=== PATIENT | female | born 1940 | race African-American/Black ===

== ENCOUNTER 2019-09-03 16:14 | Inpatient (IN) ==
[2019-09-03] MEDS ORDERED: NS 1,000 ML IV ONE (16:27)
--- NOTE | 2019-09-03 16:35 | EKG Report ---
Test Performed on : 09/03/2019 4:25:46 PM Test Reason : syncope Blood Pressure : / mmHG Vent. Rate : 087 BPM Atrial Rate : 087 BPM P-R Int : 144 ms QRS Dur : 084 ms QT Int : 362 ms P-R-T Axes : 027 030 006 degrees QTc Int : 435 ms Normal sinus rhythm. Minimal voltage criteria for LVH, may be normal variant Nonspecific ST and T wave abnormality Abnormal ECG When compared with ECG of 10-AUG-2019 18:30, (Unconfirmed) Nonspecific T wave abnormality now evident in Inferior leads Unconfirmed Result
--- NOTE | 2019-09-03 16:37 | PROVIDER DOCUMENTATION ---
HPI-Syncope/Dizziness - General Stated Complaint: SYNCOPE Time Seen by Provider: 09/03/19 18:10 Source: patient Allergies/Adverse Reactions: Patient Allergies Allergy/AdvReac Type Severity Reaction Status Date / Time Thiazides Allergy Unknown NAUSEA/VOMI Verified 09/03/19 17:27 TING ciprofloxacin Allergy Unknown Verified 09/03/19 17:27 labetalol Allergy Unknown Verified 09/03/19 17:27 amlodipine AdvReac Severe NAUSEA/VOMI Verified 09/03/19 17:27 TING aspirin AdvReac Severe NAUSEA/VOMI Verified 09/03/19 17:27 TING carvedilol [From Coreg] AdvReac Severe SHORTNESS Verified 09/03/19 17:27 OF BREATH clonidine AdvReac Severe Unknown Verified 09/03/19 17:27 eprosartan mesylate * AdvReac Severe NAUSEA/VOMI Verified 09/03/19 17:27 [From Teveten HCT] TING fexofenadine HCl * AdvReac Severe DIZZINESS Verified 09/03/19 17:27 [From Suha] hydrochlorothiazide AdvReac Severe NAUSEA/VOMI Verified 09/03/19 17:27 [From Teveten HCT] TING ibuprofen [From Motrin] AdvReac Severe ANAPHYLAXIS Verified 09/03/19 17:27 olmesartan medoxomil * AdvReac Severe NAUSEA/VOMI Verified 04/07/19 15:59 [From Benicar] TING omeprazole AdvReac Severe NAUSEA/VOMI Verified 09/03/19 17:27 TING verapamil HCl * AdvReac Severe NAUSEA/VOMI Verified 04/07/19 15:59 [From Verelan] TING acetaminophen [From Tylenol] AdvReac Unknown Verified 09/03/19 17:27 amoxicillin AdvReac Unknown Verified 09/03/19 17:27 banana AdvReac ABDOMINAL Verified 09/03/19 17:27 PAIN diphenhydramine HCl * AdvReac Unknown Verified 09/03/19 17:27 [From Benadryl] fexofenadine AdvReac Unknown Verified 09/03/19 17:27 hydralazine AdvReac Unknown Verified 09/03/19 17:27 methyldopa AdvReac Unknown Verified 09/03/19 17:27 milk AdvReac ABDOMINAL Verified 09/03/19 17:27 PAIN peanut AdvReac ABDOMINAL Verified 09/03/19 17:27 PAIN spironolactone AdvReac DIZZINESS Verified 09/03/19 17:27 [From Aldactone] Home Medications: Home Medication List Medication Instructions Recorded Confirmed Last Taken Type Clonazepam [Klonopin] 0.5 mg PO QAM PRN 06/27/15 09/03/19 09/03/19 History Magnesium Oxide [Magnesium] 400 mg PO DAILY 03/29/17 09/03/19 09/03/19 History Candesartan Cilexetil [Atacand] 32 mg PO DAILY #30 tab 04/07/19 09/03/19 09/03/19 Rx Chlorthalidone [Hygroton] 25 mg PO DAILY #30 tab 04/07/19 09/03/19 09/03/19 Rx Metoprolol Succinate E.r. [Toprol 1.5 tab PO BID 09/03/19 09/03/19 09/03/19 History Xl] Montelukast [Singulair] 1 tab PO DAILY 09/03/19 09/03/19 09/03/19 History Pantoprazole Sodium [Protonix] 1 tab PO DAILY 09/03/19 09/03/19 09/03/19 History - History of Present Illness-Syncope/Dizzy Nature of Presenting Problem: Patient is an 79 yof who presents via EMS following multiple syncopal episodes that occurred today. States she passed out 4 times. Each time became lightheaded while standing and sat down and passed out while sitting. Hx of ovarian cancer, received last chemo tx on 08/28/19. C/o nausea and generalized weakness at this time. Denies any other complaints. States did not fall or strike head following any of the syncopal episodes. Pt non-toxic in appearance and neuro intact. Review of Systems - Adult - REVIEW OF SYSTEMS - ADULT Constitutional: reports: no symptoms reported Eyes: reports: no symptoms reported Ears, Nose, Mouth & Throat: reports: no symptoms reported Cardiovascular: reports: see HPI, syncope. denies: chest pain Respiratory: reports: no symptoms reported. denies: shortness of breath Gastrointestinal: reports: no symptoms reported Genitourinary: reports: no symptoms reported Musculoskeletal: reports: no symptoms reported Integumentary: reports: no symptoms reported Neurological: reports: see HPI, syncope Psychiatric: reports: no symptoms reported Endocrine: reports: no symptoms reported Hematologic/Lymphatic: reports: no symptoms reported Allergic/Immunologic: reports: no symptoms reported All Other Systems: Reviewed and Negative Past History - Adult - PAST MEDICAL HISTORY-ADULT Review of Records: reports: Nursing Assessment Review, Medications Reviewed, Social history reviewed & non-contributory. Major Childhood Illnesses: reports: denies history Cardiovascular: reports: HTN Respiratory: reports: denies history Gastrointestinal: reports: GERD Obstetrical/Gynecological: reports: uterine/ovarian cancer (ovarian) Genitourinary: reports: other (ovarian cancer) Musculoskeletal: reports: denies history Neurological: reports: denies history Psychiatric: reports: anxiety Endocrine/Immune: reports: denies history Other Conditions: reports: denies history Additional History: Ovarian cancer - PRIOR SURGERIES/PROCEDURES Surgical/Procedure History: reports: cholecystectomy, hysterectomy, BTL, indwelling device (port), other (cytocele, rectocele, gallstones) - PRIOR HOSPITALIZATIONS Prior Hospitalizations: reports: none - IMMUNIZATION STATUS Childhood Immunizations: See Nurse Assessment Flu Vaccine: See Nurse Assessment - FAMILY HISTORY Family History: reviewed, not pertinent - SOCIAL HISTORY Smoking: non-smoker Physical Exam-General - PHYSICAL EXAM-ADULT Initial Vital Signs Reviewed: Yes - CONSTITUTIONAL General Appearance: alert, no apparent distress. negative: lethargic, slow to respond - EYES Eyes: PERRL/EOMI - HEAD, EARS, NOSE, MOUTH & THROAT HENMT: normocephalic/atraumatic, moist mucous membranes - NECK Neck: non-tender, full range of motion, supple, normal inspection - RESPIRATORY Respiratory: chest non-tender, lungs clear, normal breath sounds, no pleuratic chest pain, no respiratory distress, no accessory muscle use - CARDIOVASCULAR Cardiovascular: normal peripheral pulses, regular rate, rhythm, no edema, no gallop, no murmur - GASTROINTESTINAL (ABDOMEN) Abdominal Exam: normal bowel sounds, non tender, soft - MUSCULOSKELETAL Back Exam: normal inspection, no vertebral tenderness Extremity: normal range of motion, non-tender, normal capillary refill - SKIN Integumentary: normal color, warm/dry, rash (bilateral lower extremities- erythemic, papular). negative: cyanosis, diaphoresis, jaundice, mottled, pallor - NEUROLOGIC Neurologic: grossly normal, no motor/sensory deficits - PSYCHIATRIC Psych/Mental Status: normal mood/affect, normal thought content, normal thought process, oriented x 3 Progress - PLAN OF CARE/RESULTS Progress/Plan/Lab Results: Vital Signs - 8 hr 09/03/19 17:09 09/03/19 18:33 Temperature 98.3 F Pulse Rate 81 Pulse Rate [Sitting] 77 Pulse Rate [Standing] 74 Pulse Rate [Supine] 72 Respiratory Rate 16 Blood Pressure 149/84 Blood Pressure [Sitting] 152/83 Blood Pressure [Standing] 135/65 Blood Pressure [Supine] 125/101 O2 Sat by Pulse Oximetry 97 Laboratory Results - last 24 hr 09/03/19 09/03/19 09/03/19 16:13 16:27 16:43 WBC 2.40 L RBC 2.86 L Hgb 9.4 L Hct 28.6 L MCV 100.0 H MCH 32.9 H MCHC 32.9 L RDW Std Deviation 14.9 H Plt Count 104 L MPV 10.0 Immature Gran % (Auto) 0.0 Neut % (Auto) 66.7 Lymph % (Auto) 26.7 [place] % (Auto) 5.0 Eos % (Auto) 0.8 Baso % (Auto) 0.8 Immature Gran # (Auto) 0.00 Neut # (Auto) 1.60 Lymph # (Auto) 0.64 L [place] # (Auto) 0.12 Eos # (Auto) 0.02 Baso # (Auto) 0.02 PT INR PTT (Actin FS) Sodium 134 L Potassium 3.5 Chloride 97 L Carbon Dioxide 26 Anion Gap 11 BUN 22 Creatinine 1.4 H Estimated GFR/1.73 m2 44 BUN/Creatinine Ratio 16 Glucose 119 H POC Glucose 106 H Calculated Osmolality 273 Calcium 9.2 Total Bilirubin 1.20 H AST 71 H ALT 53 H Alkaline Phosphatase 75 Troponin T High Sens Total Protein 6.6 Albumin 3.3 L Globulin 3.3 Albumin/Globulin Ratio 1.0 09/03/19 09/03/19 16:43 16:43 WBC RBC Hgb Hct MCV MCH MCHC RDW Std Deviation Plt Count MPV Immature Gran % (Auto) Neut % (Auto) Lymph % (Auto) [place] % (Auto) Eos % (Auto) Baso % (Auto) Immature Gran # (Auto) Neut # (Auto) Lymph # (Auto) [place] # (Auto) Eos # (Auto) Baso # (Auto) PT 13.5 INR 1.02 PTT (Actin FS) 33.9 Sodium Potassium Chloride Carbon Dioxide Anion Gap BUN Creatinine Estimated GFR/1.73 m2 BUN/Creatinine Ratio Glucose POC Glucose Calculated Osmolality Calcium Total Bilirubin AST ALT Alkaline Phosphatase Troponin T High Sens 10 Total Protein Albumin Globulin Albumin/Globulin Ratio Orders Category Date Time Status Cardiac Monitoring DIRECTED Care 09/03/19 16:27 Active ED: Orthostatic Vital Signs (ER use this DIRECTED Care 09/03/19 16:27 Active FSBS/Accucheck Result NOW Care 09/03/19 16:27 Active CHEST-2 VIEWS [RAD] Stat Exams 09/03/19 16:[address] HEAD W/O CONTRAST [CT] Stat Exams 09/03/19 17:17 Completed CBC WITH DIFF [HEME] Stat Lab 09/03/19 16:13 Completed COMPREHENSIVE METABOLIC PANEL [CHEM] Stat Lab 09/03/19 16:43 Completed PROTIME WITH INR [COAG] Stat Lab 09/03/19 16:43 Completed PTT [COAG] Stat Lab 09/03/19 16:43 Completed TROPONIN T HIGH SENSITIVITY Stat Lab 09/03/19 16:43 Completed UA NIMS W/REFLEX CULT [URINALYSIS] Stat Lab 09/03/19 18:21 Ordered 0.9% Sodium Chloride Inj [Ns] 1,000 ml Med 09/03/19 16:27 Active IV 100 mls/hr Metoclopramide [Reglan] Med 09/03/19 17:02 Discontinued 10 mg IV NOW ONE EKG [EKG] Stat Ther 09/03/19 16:27 Draft Result Diagrams: 09/03/19 16:13 09/03/19 16:43 - REASSESSMENT Reassessment #1 Time Reassessed: 19:00 Status: other (Admitting HPS paged. Pt in agreement with plan to admit. No change in mental status since initial exam.) Reassessment #2 Time Reassessed: 19:30 Status: other (Admitting HPS paged.) Reassessment #3 Time Reassessed: 20:00 Status: other (Admitting HPS paged.) - EKG 1 Time of EKG reading by physician:: 16:25 EKG Read and Signed by:: Pablo Greer EKG Interpretation (*Must complete 3 of following elements*): Abnormal Rate: 87 Rhythm: SR, nonspecific ST & T wave abnormality QRS: normal ST Wave: non-specific ST changes - XRAY 1 XRAY Study: Chest ([facility] - [address], [address], [place] [address] [place] [address] Department of Imaging Patient: MAURA LOMBARDO Date: 09/03/19MR#: [id number] : 1940DM Status: REG ERAcct#: [id number] Age/Sex: 79/FRoom/Bed: Loc: ED Ordering Physician: Jasbir Lorenz Family Physician: None,PCP Reason for Procedure: syncope Signed EXAM: CHEST-2 VIEWS 09/03/2019 HISTORY: syncope TECHNIQUE: PA and lateral chest COMMENT: There is COPD. Compared to 08/10/2019 there has been no significant change. IMPRESSION: Stable chest. Electronically signed by Bob Medrano 09/03/2019 5:31 PM 09/03/19 173 Interpreting Physician: Bob Medrano MD Dictated Date/Time: 09/03/19 1730 cc: Jasbir Lorenz; None,PCP) - CT/MRI 1 CT Study: Head ([facility] - [address], [address], [place] [address] [place] [id number] Department of Imaging Patient: MAURA LOMBARDO Date: 09/03/19MR#: [id number] : 1940DM Status: REG ERAcct#: [id number] Age/Sex: 79/FRoom/Bed: Loc: ED Ordering Physician: Jasbir Lorenz Family Physician: None,PCP Reason for Procedure: syncope Signed EXAM: CT HEAD W/O CONTRAST 09/03/2019 HISTORY: syncope TECHNIQUE: This exam was performed using automated exposure control, adjustment of mA or kV according to patient size, and/or use of iterative reconstruction technique. COMMENT: There is no evidence of mass effect, bleed, or abnormal extra-axial fluid collection. There are patchy lucencies in the periventricular white matter of both hemispheres. 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 The visualized paranasal sinuses are clear. Compared to the previous examination of 08/04/2015 there has been no significant change. IMPRESSION: Mild chronic microvascular white matter changes. No evide nce of acute intracranial disease. Electronically signed by Bob Medrano 09/03/2019 5:27 PM 09/03/19 1727 Interpreting Physician: Bob Medrano MD Dictated Date/Time: 09/03/19 172 cc: Jasbir Lorenz; None,PCP) - CONSULTS/PCP/HOSPITALIST Notification #1 *Consult/PCP/Hospitalist*: Dr. Arcos Time Discussed: 20:26 Reason/Comments: admit- syncope, pancytopenia Consult Disposition: Will see in ED, Admit Departure - Departure Date of Disposition Decision: 09/03/19 Time of Disposition Decision: 20:24 DIAGNOSIS: Pancytopenia, Renal insufficiency Syncope Qualifiers: Syncope type: unspecified Qualified Code(s): R55 - Syncope and collapse Disposition: ADMITTED INPATIENT Certified Medical Emergency: Emergent Condition: Stable Referrals and Follow-Ups: None,PCP [Primary Care Provider] - - Critical Care Note This patient required my direct & personal management of CC.: No Attestation - Physician/ FLORENCIA Attestation Patient care was provided by Advanced Practice Provider:: Yes Advanced Practice Provider:: Jasbir Lorenz Advanced Practice Provider documentation review:: The Mid-level provider documentation, treatment plan and medical decision making was reviewed by the physician who agrees with all treatment and medical decision making by the MLP. The physician spent face to face time with patient:: No Advanced Practice Provider documentation review:: Supervising physician onsite and consulted in the evaluation and care of this patient. The physician did not have a face to face encounter with the patient.
[2019-09-03] MEDS ORDERED: REGLAN IV ONE (17:02)
[2019-09-03 17:14] LABS: BASO# 0.02 X1000 (0.0-0.2); BASO% 0.8 % (0.0-0.8); EOS# 0.02 X1000 (0.0-0.7); EOS% 0.8 % (0.0-10.0); HEMATOCRIT 28.6 % (37.0-47.0); HEMOGLOBIN 9.4 g/dL (12.0-16.0); LYMPH# 0.64 X1000 (1.2-3.4); LYMPH% 26.7 % (20.5-51.1); MCH 32.9 PG (27-31); MCHC 32.9 g/dL (33-37); MONO# 0.12 X1000 (0.11-0.59); NEUT% 66.7 % (42.2-75.2); PLT 104 X1000 (130-400); RBC 2.86 XMIL (4.2-5.4); RDW 14.9 % (11.5-14.5)
--- NOTE | 2019-09-03 17:29 | Diag Imaging Result Doc PS360 ---
EXAM: CT HEAD W/O CONTRAST 09/03/2019 HISTORY: syncope TECHNIQUE: This exam was performed using automated exposure control, adjustment of mA or kV according to patient size, and/or use of iterative reconstruction technique. COMMENT: There is no evidence of mass effect, bleed, or abnormal extra-axial fluid collection. There are patchy lucencies in the periventricular white matter of both hemispheres. 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 The visualized paranasal sinuses are clear. Compared to the previous examination of 08/04/2015 there has been no significant change. IMPRESSION: Mild chronic microvascular white matter changes. No evidence of acute intracranial disease. Electronically signed by Bob Medrano 09/03/2019 5:27 PM
--- NOTE | 2019-09-03 17:33 | Diag Imaging Result Doc PS360 ---
EXAM: CHEST-2 VIEWS 09/03/2019 HISTORY: syncope TECHNIQUE: PA and lateral chest COMMENT: There is COPD. Compared to 08/10/2019 there has been no significant change. IMPRESSION: Stable chest. Electronically signed by Bob Medrano 09/03/2019 5:31 PM
[2019-09-03 17:57] LABS: INR 1.02; PROTIME 13.5 Seconds (11.0-16.0)
[2019-09-03 17:58] LABS: PTT 33.9 Seconds (22.3-41.8)
[2019-09-03 18:12] LABS: ALBUMIN 3.3 g/dL (3.5-5.0); CALCIUM 9.2 mg/dL (8.8-10.2); CREATININE 1.4 mg/dL (0.5-0.9); POTASSIUM 3.5 mmol/L (3.5-5.1); TOTAL BILIRUBIN 1.2 mg/dL (0.20-1.00); TOTAL PROTEIN 6.6 g/dL (6.3-8.3)
[2019-09-03 21:07] LABS: URINE SOURCE CLEAN CATCH
[2019-09-03 21:09] LABS: BILIRUBIN URINE NEGATIVE (NEGATIVE); BLOOD URINE NEGATIVE (NEGATIVE); COLOR YELLOW; GLUCOSE URINE NEGATIVE (NEGATIVE); KETONE URINE NEGATIVE (NEGATIVE); LEUKOCYTES URINE NEGATIVE (NEGATIVE); NITRITE URINE POSITIVE (NEGATIVE); PROTEIN URINE NEGATIVE (NEGATIVE); SP GRAVITY URINE 1.012; TURBIDITY URINE CLEAR (CLEAR); UROBILINOGEN URINE NORMAL (NORMAL)
[2019-09-03 21:13] LABS: UR EPITHELIAL CELLS <10 /HPF (<10); URINE BACTERIA NEGATIVE /HPF; URINE CASTS NONE SEEN; URINE CRYSTALS NONE SEEN; URINE RBC <10 /HPF (<10); URINE SMALL ROUND CELLS NONE SEEN; URINE WBC <10 /HPF (<10); URINE YEAST NONE SEEN
[2019-09-03] MEDS ORDERED: BENADRYL PO ONE (22:25)
[2019-09-03] MEDS: NS 1,000 ML IV SCH (22:51)
[2019-09-04] MEDS ORDERED: KLONOPIN PO PRN (06:44)
--- NOTE | 2019-09-04 07:09 | HISTORY AND PHYSICAL ---
CHIEF COMPLAINT: Recurrent episodes of loss of consciousness. HISTORY OF PRESENT ILLNESS: Ms. Jelena Oconnor is an 79-year-old female, and she does have a history of ovarian cancer currently receiving chemotherapy, hypertension, sinus disease, gastroesophageal reflux disease. The patient presents to the hospital because of recurrent episodes of loss of consciousness, which she experiences whenever she gets chemotherapy for ovarian cancer. The patient is currently on Alimta. The patient is unable to adequately describe these episodes of syncope. She currently has some dizziness no headaches, has visual blurring. When she presented to the ER, she did have a CT scan of the brain done, which was unremarkable for any acute changes. The patient has now been admitted to the floor now for further management. PAST MEDICAL HISTORY: Ovarian cancer, hypertension, sinus disease and gastroesophageal reflux disease. SOCIAL HISTORY: No history of cigarette smoking. No alcohol or drug use. ALLERGIES: No known drug allergies. FAMILY HISTORY: Positive for hypertension. PAST SURGICAL HISTORY: She has had bilateral oophorectomy. She has had bladder suspension surgery, cholecystectomy, as well as partial hysterectomy. ALLERGIES: She is allergic to thiazides, ciprofloxacin, labetalol, amlodipine, aspirin, carvedilol, clonidine, Eprosartan mesylate, fexofenadine, hydrochlorothiazide, ibuprofen, Benicar, omeprazole, verapamil, acetaminophen, Amoxil, Benadryl, fexofenadine, hydralazine methyldopa, milk, peanuts, spironolactone. FAMILY HISTORY: Positive for hypertension. MEDICATIONS: Include the following, Klonopin 0.5 mg p.o. once a day, magnesium oxide 400 mg p.o. daily, Atacand 32 mg p.o. once a day, chlorthalidone 25 mg p.o. once a day, metoprolol 1.5 tab twice a day. Montelukast 1 tab daily, pantoprazole 1 tab daily. REVIEW OF SYSTEMS: Constitutional: No fever. CHILD GUIDANCE COUNSELOR: No headaches. Eyes: Blurry vision. ENT: Sinus problems. Cardiovascular: No chest pain. Respiratory: No cough. GI: She does have nausea and no vomiting. No abdominal pain. : No dysuria. Dermatology: No skin lesions. Hematology: No bleeding problems. Psychiatric: She has anxiety. Allergy/immunology: She does allergy symptoms. EXAMINATION ON ADMISSION: Vital Signs: Vital signs are as follows: Temperature 98.3 degrees, pulse is 81, respiratory rate 16, blood pressure 149/84, oxygen saturation is 97%. HEENT: Atraumatic, normocephalic. She is anicteric. She does have whitish discoloration on tongue. Neck: No lymphadenopathy or thyromegaly. Cardiovascular: S1, S2. Respiratory system: Has evidence of good air entry bilaterally. Abdomen: Soft, nontender. No masses felt. Extremities: She does have edema, 1+ in both lower extremities. Central nervous system: No obvious focal deficits noted. LABORATORY DATA: Labs are as follows: WBC is 2.4, hematocrit is 28.6 with a platelet count of 104. INR is 1.02. Sodium is 134, potassium is 3.5, chloride 97, bicarbonate 26. BUN is 24, creatinine is 1.4, glucose is 119. AST 71, ALT 53. UA positive for nitrite. IMAGING STUDIES: Chest x-ray shows evidence of COPD. EKG shows normal sinus rhythm with minimal voltage criteria for LVH. Nonspecific ST-T abnormalities. CT scan of the brain shows mild chronic microvascular white matter changes. No evidence of acute intracranial disease. ASSESSMENT AND PLAN: 1. Recurrent syncope. We will place patient on telemetry and obtain magnetic resonance imaging, as well as magnetic resonance angiogram of the brain, carotid Doppler study and also a two- dimensional echocardiogram of the heart. Will also get an electroencephalogram. I will also obtain serial cardiac enzymes. The patient may need a neurology, as well as a cardiology evaluation. 2. Ovarian cancer. Consult with the patient's oncologist. 3. Pancytopenia, probably related to recent chemotherapy. Just follow up on patient's complete blood count. 4. Hypertension. Optimize blood pressure control. 5. Gastroesophageal reflux disease. Maintain patient on proton pump inhibitor. 6. Abnormal liver function tests. Check hepatitis panel, as well as abdominal ultrasound. 7. Renal insufficiency. May be related to prerenal azotemia. Maintain patient on intravenous fluids. Follow up on renal function. 8. Deep vein thrombosis prophylaxis. Sequential compression devices. 9. Gastrointestinal prophylaxis. Proton pump inhibitor. cc: Pito Antonio MD
--- NOTE | 2019-09-04 09:23 | Diag Imaging Result Doc PS360 ---
EXAM: MRI BRAIN W/WO CONTRAST 09/04/2019 HISTORY: syncope TECHNIQUE: T1 sagittal, axial and post gadolinium-enhanced enhanced axial with coronal reformation, axial T2, FLAIR, DWI and coronal gradient echo. COMMENT: There are some subcortical punctate areas of increased T2-weighted signal intensity as well as increased signal intensity adjacent to the atrium of the left lateral ventricle and the frontal horn of the right lateral ventricle. There is minimally increased T2-weighted signal intensity in the ojse j. There are no previous studies available for comparison. There is no evidence of bleed or abnormal extra-axial fluid collection. There is no evidence of restricted diffusion. There is no evidence of abnormal gadolinium enhancement. IMPRESSION: Minimal microvascular white matter changes. No evidence of acute intracranial disease. Electronically signed by Bob Medrano 09/04/2019 9:21 AM
--- NOTE | 2019-09-04 09:25 | Diag Imaging Result Doc PS360 ---
EXAM: MRA BRAIN W/O CONTRAST 09/04/2019 HISTORY: syncope TECHNIQUE: 3-D [id number] COMMENT: There is no evidence of aneurysm or major branch occlusion. There are no previous studies available for comparison. IMPRESSION: No definite abnormality. Electronically signed by Bob Medrano 09/04/2019 9:22 AM
[2019-09-04] MEDS: TOPROL XL PO SCH ×2 (10:54→21:27)
[2019-09-04] MEDS: SINGULAIR PO SCH (10:54)
[2019-09-04] MEDS: ATACAND PO SCH (10:54)
[2019-09-04] MEDS: MAG-OX PO SCH (10:55)
--- NOTE | 2019-09-04 13:10 | HEMO/ONC CONSULTATION ---
DATE: 09/04/2019 CONSULTATION REQUESTED BY: Hospitalist service. REASON FOR CONSULTATION: Patient known. HISTORY OF PRESENT ILLNESS: Ms. Jelena Oconnor is an 79-year-old female who is known to us as we are currently treating her for metastatic recurrent ovarian carcinoma. She is currently on Alimta single agent. Her last dose was on 08/28/2019. At that office visit, the patient complained of some itchy eyes and clear nasal drainage. She was advised to take an over- the-counter antihistamine. She reportedly tolerated the treatment well and had no other acute issues or complaints while in our office. She first contacted us on 09/01/2019, reporting that she had had a fainting spell. It looks like the emergency medical services was contacted and came to her home. She was evaluated, but did not go to the emergency department. We advised her that if she need our assistance, we will be happy to see her in the clinic. We also offered IV fluids. The patient then contacted again on 09/03/2019 complaining of what sounded to us like hand-foot syndrome. We prescribed her some B6. I gave her further instructions. They then contacted us again later in the day on and reported that the patient had yet another fainting spell. They were advised to take the patient to the emergency department for further evaluation. The patient does have a cardiac history. The patient has subsequently been admitted to the hospital for further evaluation and treatment. The Alimta that she received on 08/28/2019 was actually her fourth treatment. Prior to that, she has not reported to us any fainting spells or any other major intolerances to her Alimta. PAST MEDICAL HISTORY: 1. Bladder prolapse. 2. Hypertension. 3. GERD symptoms. 4. Anxiety. 5. Seasonal allergies. 6. Metastatic recurrent ovarian cancer. She has had several lines of therapy and is currently receiving Alimta as per above. SURGICAL HISTORY: Status post partial hysterectomy in 1969, bladder sling in 1998, cystocele repair in 2009, bladder prolapse and resection of vaginal mass in January 2015. SOCIAL HISTORY: The patient is single, but she has supportive children. She usually has 1 to 2 daughters who come with her to every visit. She denies any alcohol, illicit drug or tobacco use. FAMILY HISTORY: Positive for heart disease and hypertension. REVIEW OF SYSTEMS: Will be as per the HPI. PHYSICAL EXAMINATION: The physical exam will be updated later. LABS AND STUDIES: White blood cells 2.4, hemoglobin 9.4, platelet count is 104,000. Sodium 134, potassium 3.5, chloride 97, CO2 of 26, BUN 22, creatinine 1.4, glucose 119. ASSESSMENT AND PLAN: 1. Metastatic recurrent ovarian carcinoma. Patient's last treatment with Alimta was on 08/28/2019. Holding treatment while she is here in the hospital. We will have her follow back up with us as an outpatient to discuss reinitiating treatment at a later date. 2. Syncopal episodes. Patient is currently undergoing a cardiac workup. We will follow up on those results as they become available. They are also doing brain imaging, which we will also follow up on. 3. Pancytopenia. This is related to her chemotherapy. She is heavily pretreated. Blood counts are overall stable. Provide transfusion support as needed. 4. Elevated liver function tests. The patient does have known intraperitoneal metastasis, as well as calcifications adjacent to the inferior margin of the left hepatic lobe, which is overall stable in her most recent scan done on 07/22/2019. Her LFTs are more elevated than they have been in our office previously. Continue to monitor and follow up on any results in regards to her workup that is ongoing. 5. Hypertension. Management per the primary team. Thank you for consulting us on Ms. Anastasia year. We will continue to follow along and make any recommendations as needed. Dictated by ROCHELLE Cuevas for Virginia Nicolas MD cc: Virginia Nicolas MD I have seen and examined the patient and the above note reflects my history, physical exam, assessment and plan. Virginia OBANDO
--- NOTE | 2019-09-04 13:49 | HEMO/ONC CONSULTATION ---
DATE: 09/04/2019 ADDENDUM REPORT The patient is seen in consultation in conjunction with ROCHELLE Cuevas, at the request of Dr. Corado. REASON FOR CONSULTATION: Ovarian cancer. HISTORY OF PRESENT ILLNESS: As per Mandi's note, the patient was developing dizziness and syncopal episodes and presents to the emergency room. PHYSICAL EXAMINATION: Vital signs: Temperature 97.9 degrees, pulse 88, respiratory rate 19, blood pressure 172/47, O2 saturation 99% on room air. General: This is a well-developed, well- nourished, woman in no acute distress. She is accompanied at the time of consultation. HEENT: Sclerae anicteric. Cardiovascular: Regular rate and rhythm. Normal S1, S2. No murmurs, rubs, or gallops. Pulmonary: Lungs clear to auscultation bilaterally without wheezes, rales, or rhonchi. Abdomen: Soft, nontender, nondistended with normoactive bowel sounds. Neurological: Alert and oriented x3. No focal deficits. DIAGNOSTIC DATA: Labs and imaging reviewed as per Mandi's note. ASSESSMENT AND PLAN: 1. Metastatic recurrent ovarian cancer: Patient has been on palliative therapy with Alimta, which she has been tolerating well. We will follow up as an outpatient. 2. Recurrent syncope: Further workup as per primary team. Thank you for this consultation and the opportunity to participate in the care of this patient. We will follow along and leave further recommendations as indicated. cc: Virginia Nicolas MD
--- NOTE | 2019-09-04 15:54 | PROGRESS NOTE ---
DATE: 09/04/2019 SUBJECTIVE: The patient seems to be stable. She is completely awake, alert. She is oriented x3. No new issues today, she is not complaining of dizziness or headache or blurry vision, MRI and MRA did not show any new abnormality. CT scan is negative as well, chest x-ray is stable. Hematology/Oncology department already saw this patient. She has been on palliative therapy with Alimta and she seems to be tolerating that. OBJECTIVE: Vital Signs: Temperature 98.1 degrees, pulse 72, respiratory rate 19, blood pressure 148/44. Oxygen saturation 99 on room air. HEENT: Head normocephalic. No trauma. PERRLA. Neck: Supple. No JVD. No masses. Central trachea. Chest: Clear to auscultation. No wheezing. No rales. Abdomen: Soft, nontender, nondistended. She does have a midline scar which is old and completely healed. Extremities: Trace edema. She does have a bilateral rash and is warm to palpation. As per the patient, this is chronic and related to the chemotherapy. LABORATORY: Creatinine 1.4 yesterday, which is a little bit more elevated than baseline. Glucose today 114. Tomorrow, we will repeat the lab work. ASSESSMENT AND PLAN: 1. Recurrent syncope with a negative CT scan, MRI and MRA. Pending the rest of the studies including carotid ultrasound and echocardiogram, chest x-ray seems to be stable. As per the patient, she was having nausea and she vomited twice and after that she had an episode of syncope. I do believe this can be related to a vasovagal reaction. Her creatinine was a little bit elevated as well, so probably she was slightly dehydrated as well. 2. Metastatic recurrent ovarian carcinoma. The patient has been on palliative therapy with Alimta and it looks like she is tolerating this well. She will need to continue to follow up as an outpatient with Hematology/Oncology department. 3. Pancytopenia, likely related to chemotherapy. 4. Hypertension. Continue with same management for now. 5. Gastroesophageal reflux disease. Continue with proton pump inhibitors. 6. Elevated LFTs likely due to a combination of metastatic disease and chemotherapy. We have requested an abdominal ultrasound, also a hepatitis panel which is pending at this moment. 7. Acute on chronic kidney disease, normally her hemoglobin is between 1 to 1.2. Today, it is 1.4. Probably, this patient was a bit dehydrated, but I will continue with IV fluids. She seems to be euvolemic at this moment. 8. Lower extremity rash. The patient takes Benadryl at home. I will put her back on that likely due to chemotherapy. 9. Deep vein thrombosis prophylaxis with sequential compression devices and gastrointestinal prophylaxis with proton pump inhibitors. cc: Ildefonso Montoya MD
[2019-09-04] MEDS: NS 1,000 ML IV SCH ×2 (20:03→22:25)
[2019-09-04] MEDS ORDERED: BENADRYL PO SCH (21:00)
--- NOTE | 2019-09-04 22:23 | ECHO REPORT ---
ORDER DATE: 09/04/2019 MEASUREMENTS: Septal thickness 1.0, left ventricular internal diameter in diastole 4.2, posterior wall thickness 1.0, left ventricular internal diameter in systole 2.7, aortic root 3.0, left atrium 3.5. SUMMARY: 1. Adequate quality study. 2. The aortic valve is trileaflet and opens normally on 2-dimensional images. The peak gradient across the aortic valve is less than 10 mmHg. There is very mild aortic regurgitation. Mitral, tricuspid, and pulmonic valves are without evidence of structural abnormality with mild mitral regurgitation, very mild tricuspid regurgitation, and very mild pulmonic insufficiency. Estimated systolic PA pressure by Doppler is 35 to 40 mmHg suggesting mild pulmonary hypertension. Aortic root is normal in size. 3. Normal left ventricular dimension is demonstrated. The estimated left ventricular ejection fraction appears to be at least 60%. No regional wall abnormalities evident. Doppler suggests grade 1 left ventricular diastolic dysfunction. The left atrium, right atrium and right ventricle are normal in size with grossly preserved right ventricular systolic function. 4. No pericardial effusion. 5. Appearance of inferior vena cava suggests normal central venous pressure. CONCLUSIONS: 1. Very mild aortic regurgitation. 2. Very mild tricuspid regurgitation with mild pulmonary hypertension by Doppler. 3. Mild mitral regurgitation. 4. Estimated left ventricular ejection fraction at least 60% without regional wall motion abnormality evident. 5. Grade 1 left ventricular diastolic dysfunction. cc: MD Pito Gentile MD
[2019-09-05] MEDS: NS 1,000 ML IV SCH (05:13)
[2019-09-05 07:01] LABS: AGAP 14; ALB/GLOB RATIO 1.2; ALBUMIN 3.1 g/dL (3.5-5.0); ALKALINE PHOSPHATASE 67 U/L (32-104); BUN 19 mg/dL (8-22); CALCIUM 7.9 mg/dL (8.8-10.2); CHLORIDE 102 mmol/L (98-107); COSMO 279; ESTIMATED GFR > 60; GLUCOSE 92 mg/dL (70-104); GOT 60 U/L (10-30); GPT 43 U/L (10-36); POTASSIUM 3.4 mmol/L (3.5-5.1); SODIUM 139 mmol/L (136-145); TCO2 23 mmol/L (25-35); TOTAL BILIRUBIN 0.86 mg/dL (0.20-1.00); TOTAL PROTEIN 5.7 g/dL (6.3-8.3)
[2019-09-05 07:17] LABS: BASO# 0.01 X1000 (0.0-0.2); BASO% 0.5 % (0.0-0.8); EOS# 0.06 X1000 (0.0-0.7); EOS% 2.7 % (0.0-10.0); HEMATOCRIT 24.8 % (37.0-47.0); HEMOGLOBIN 7.9 g/dL (12.0-16.0); LYMPH# 1.05 X1000 (1.2-3.4); LYMPH% 47.3 % (20.5-51.1); MCH 32.2 PG (27-31); MCHC 31.9 g/dL (33-37); MCV 101.2 FL (81-99); MONO# 0.47 X1000 (0.11-0.59); MONO% 21.2 % (1.7-9.3); MPV 10.1 FL (7.4-10.4); NEUT# 0.63 X1000 (1.4-6.5); NEUT% 28.3 % (42.2-75.2); PLT 72 X1000 (130-400); RBC 2.45 XMIL (4.2-5.4); RDW 14.8 % (11.5-14.5); WBC 2.22 X1000 (4.8-10.8)
[2019-09-05] MEDS ORDERED: KLOR-CON PO ONE (07:36)
[2019-09-05 07:58] VITALS: BP 144/62
[2019-09-05 08:42] LABS: EOS 4 % (1-10); HYPOCHROM 1+; LYMPHS 48 % (21-51); MONO 20 % (1-9); SEGS 26 % (42-75)
[2019-09-05] MEDS: TOPROL XL PO SCH (09:11)
[2019-09-05] MEDS: MAG-OX PO SCH (09:11)
[2019-09-05] MEDS: SINGULAIR PO SCH (09:12)
[2019-09-05] MEDS: ATACAND PO SCH (09:19)
[2019-09-05] MEDS ORDERED: BENADRYL PO ONE (10:12)
--- NOTE | 2019-09-05 14:22 | DISCHARGE SUMMARY ---
ADMISSION DATE: 09/03/2019 DISCHARGE DATE: 09/05/2019 DISCHARGE DIAGNOSES: 1. Syncope, likely vasovagal versus orthostatic. 2. Metastatic recurrent ovarian cancer. 3. Pancytopenia, likely related to chemotherapy. 4. Hypertension. 5. Gastroesophageal reflux disease. 6. Elevated LFTs likely a combination of metastatic disease and chemotherapy. 7. Acute on chronic kidney disease, resolved, likely due to dehydration. 8. Lower extremity rash due to chemotherapy. PROCEDURES PERFORMED: 1. Chest x-ray dated 09/03/2019. Impression is stable chest. 2. Head CT scan dated 09/03/2019. Impression: Mild chronic microvascular white matter changes, no evidence of acute intracranial disease. 3. Brain MRA dated 09/04/2019. Impression: No definite abnormality. 4. Brain MRI dated 09/04/2019. Impression: Minimal microvascular white matter changes. No evidence of acute intracranial disease. 5. Echocardiogram dated 09/04/2019. Impression: Very mild aortic regurgitation, very mild tricuspid regurgitation with mild pulmonary hypertension by Doppler, mild pulmonary regurgitation, estimated ejection fraction around 60% without wall motion abnormality evident. 6. Grade 1 left ventricular diastolic dysfunction. 7. Carotid ultrasound dated 09/04/2019. No evidence of obstruction. Preliminary report 0-39% stenosis. 8. EEG dated 09/04/2019 pending results. This patient has no evidence of seizure disorder. We will follow this up in the future. CONSULT: Hematology Oncology, Dr. Virginia Nicolas. HOSPITAL COURSE: 79-year-old female, admitted on 09/03/2019. She has a history of ovarian cancer, receiving chemotherapy, hypertension, sinus disease, GERD, presented to the hospital because she has been having episodes of loss of consciousness, which she experiences whenever she gets chemotherapy for ovarian cancer. The patient is currently on chemotherapy and she was evaluated during this hospitalization by the Hematology Oncologist. The patient was unable upon admission to adequately describe the episodes of syncope. Upon admission per the admission doctor, she was having some dizziness, but no headache, has some visual blurring. When she presented to the ER the CT scan of the brain was done and was basically unremarkable. After that we did an MRI, MRA of the head that did show any acute problems. Also echocardiogram did show any thrombus, some regurgitation of some of the valves, but those were mild and ejection fraction of story around 60%, mild pulmonary hypertension. A carotid ultrasound did not show any obstruction per preliminary report, pending EEG at this point. Pending EEG results at this point, but this patient does not have a history of seizures or having a seizure disorder at this moment, I will follow that up. As per the patient, she was having nausea and she was vomiting when she basically passed out. I do believe this is more related to a vasovagal syndrome than any other an abnormality. Unfortunately she will have those episodes with chemotherapy in the future. Also we checked the orthostatics and she was doing pretty good, just in 1 opportunity the blood pressure dropped around 30 points just in 1 opportunity. I talked to the patient about that. I told her that she needs to go from the supine position to sitting up slowly and wait a little bit before she stands up. Once she is up, she needs to wait a little be so she can corroborate that she is not dizzy or having any problems before walking. She seems to understand all these. The patient is doing much better today. Her mild acute on chronic kidney disease improved, he her vital signs are stable. She will be discharged today. OBJECTIVE: Vital signs: Temperature 98.1 degrees, pulse 84, respiratory rate 19, blood pressure 144/62, oxygen saturation 98 on room air. HEENT: Head normocephalic. No trauma. PERRLA. Neck: Supple. No JVD. No masses. Central trachea. She has a Port-A-Cath. Abdomen: Soft, nontender, nondistended. No hepatosplenomegaly. Extremities: Mild edema at the level of the lower extremities. No clubbing. No cyanosis. She does have a rash with some itchiness. Neurological examination: The patient is awake, alert, and oriented x3. No focal deficits. LABORATORY: WBC 2.2, hemoglobin 7.9, hematocrit 24.8, platelets 72,000. Sodium 139, potassium 3.4, chloride 102, bicarbonate 23, BUN 19, creatinine 1, glucose 92, calcium 7.9, AST 60, ALT 43, alkaline phosphatase 67. DISCHARGE MEDICATIONS: Basically she will continue with her home medications including 1. Candesartan 32 mg p.o. daily. 2. Chlorthalidone 25 mg p.o. daily. 3. Clonazepam 0.5 mg p.o. q.a.m. as needed. 4. Benadryl 25 mg p.o. at bedtime. 5. Folic acid 1 mg p.o. daily. 6. Magnesium oxide 400 mg p.o. daily. 7. Metoprolol succinate ER 1.5 tablets p.o. b.i.d., which is 150 mg p.o. b.i.d. 8. Singulair 10 mg p.o. daily. 9. Pantoprazole 40 mg p.o. daily. Because of her mild elevation of the LFTs, we tried to do an ultrasound of the abdomen, but the patient refused that. She states that this has been done already as an outpatient by Dr. Nicolas, which is following her closely, so that was canceled. In the other hand like I mentioned before, I explained to her that she needs to be careful when she is going to stand up and she may have problems with vasovagal symptoms if she is having nausea or vomiting. I told her that she needs to be hydrated and also we discussed about her medications and since she is taking metoprolol that can cause a decrease of the blood pressure and heart rate, especially if she is having orthostatic hypotension or vasovagal symptoms. She seems to understand everything I said. cc: Ildefonso Montoya MD
[2019-09-06 11:26] LABS: HEPATITIS PROFILE ACUTE SEE COMMENTS
--- NOTE | 2019-09-06 22:02 | EEG REPORT ---
DATE: 09/04/2019 REFERRING PHYSICIAN: Pito Antonio MD EMT DISPATCHER: Rodriguez Rashid BACKGROUND INFORMATION/TECHNIQUE: This is a digitally recorded routine EEG with video. HISTORY: An 79-year-old female with syncope. Patient reports experiencing loss of consciousness 3 days and 5 days post chemotherapy treatment for ovarian cancer. She reports 2 similar episodes a few years ago, also after chemo treatment. EEG is ordered to detect evidence of seizures. MEDICATIONS: Clonazepam EEG FINDINGS: A moderately well-formed 10 Hz posterior dominant alpha rhythm is seen symmetrically in the occipital regions and attenuates with eye opening. The anterior background consists of mixed alpha and beta range frequencies. Excessive beta frequency is seen diffusely throughout the record. No definite persistent focal slowing. No epileptiform discharges. No seizures. Hyperventilation is not performed. Photic stimulation induces a normal driving response. No definite drowsiness patterns. Stage II sleep is not seen. The EKG demonstrates regular RR intervals. IMPRESSION AND CLINICAL CORRELATION: Normal routine EEG in the awake state. Of note, a normal EEG does not rule out epilepsy. Excessive beta frequency is often a medication effect, most commonly seen with medications such as benzodiazepines. cc: MD Pito Mendieta MD
[2019-09-08 06:48] LABS: HCV BY PCR SEE COMMENTS
--- NOTE | 2019-09-08 08:27 | Carotid Study ---
DATE: 09/04/2019 PROCEDURE: Bilateral duplex and color flow imaging of the carotid arteries performed using the [employer] vivid E9 ultrasound system with a 9 L-D transducer. INDICATION: Syncope. FINDINGS: The velocities in cm/sec of both carotid systems were review. There is forward flow in both vertebral arteries, and the right ICA/CCA ratio is 1.14, corresponding to a percent stenosis of 0% to 39%. The left ICA/CCA ratio is 0.83, corresponding to a percent stenosis of 0% to 39%. INTERPRETATION: Mild atherosclerotic disease of the distal common and internal carotid arteries bilaterally, without evidence of a hemodynamically significant lesion in either carotid system. cc: MD Pito Wilson MD
== END 2019-09-05 13:47 | disposition home or self-care (01) | DRG 312 ==
LOC: ED 16:14 → 3N 22:56 → SUATTDRO 22:56
PROVIDERS: ATTEND Internal Medicine